=== PATIENT | female | born 1990 | race Caucasian/White ===

== ENCOUNTER 2017-01-26 18:23 | Emergency (ER) ==
--- NOTE | 2017-01-26 18:49 | PROVIDER DOCUMENTATION ---
HPI-Musculoskeletal Pain/Inj - GENERAL Chief Complaint: Extremity Pain Stated Complaint: RT KNEE PAIN Time Seen by Provider: 01/26/17 18:35 Source: patient - HX OF PRESENT ILLNESS-MUSKULOSKELTAL Nature of Presenting Problem: 26 y/o WF c/o R knee pain x 7 years. Pt states that she has seen several specialists since she had surgery on the knee 7 years ago. States that pain is mostly located at posterior aspect of knee. Denies any acute injury. Review of Systems - Adult - REVIEW OF SYSTEMS - ADULT Constitutional: reports: no symptoms reported. denies: chills, fever Eyes: reports: no symptoms reported. denies: blurred vision, double vision Ears, Nose, Mouth & Throat: reports: no symptoms reported. denies: ear pain, nose pain Cardiovascular: reports: no symptoms reported. denies: chest pain, palpitations Respiratory: reports: no symptoms reported. denies: dyspnea on exertion, shortness of breath Gastrointestinal: reports: no symptoms reported. denies: nausea, vomiting Genitourinary: reports: no symptoms reported. denies: dysuria, frequency Musculoskeletal: reports: see HPI, joint pain. denies: back pain, muscle aches , neck pain Integumentary: reports: no symptoms reported. denies: nail changes, rash Neurological: reports: no symptoms reported. denies: numbness, paresthesia Psychiatric: reports: no symptoms reported Endocrine: reports: no symptoms reported. denies: cold intolerance, heat intolerance Hematologic/Lymphatic: reports: no symptoms reported. denies: easy bruising, prolonged bleeding Allergic/Immunologic: reports: no symptoms reported All Other Systems: Reviewed and Negative Past History - Adult - PAST MEDICAL HISTORY-ADULT Review of Records: reports: Nursing Assessment Review, Medications Reviewed Major Childhood Illnesses: reports: denies history Cardiovascular: reports: denies history Respiratory: reports: asthma Gastrointestinal: reports: denies history Obstetrical/Gynecological: reports: ovarian cysts Genitourinary: reports: denies history Musculoskeletal: reports: denies history Neurological: reports: denies history Psychiatric: reports: denies history Endocrine/Immune: reports: denies history Other Conditions: reports: denies history 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 on dangers of tobacco.: Discussed manners to quit use, and f/u contacts for add'l counseling. Physical Exam-Injury Related - Physical Exam-Injury Related Initial Vital Signs Reviewed: Yes General Appearance: alert, mild distress Eyes: pink conjunctivae Head, Ears, Nose, Mouth & Throat: normocephalic/atraumatic Neck: normal inspection Respiratory: no respiratory distress Cardiovascular: normal peripheral pulses, regular rate, rhythm Peripheral Pulses: dorsalis-pedis (R): 1+, dorsalis-pedis (L): 1+ Extremity: normal range of motion, normal gait, normal capillary refill, tenderness (diffuse at R knee). negative: abnormal NV exam, swelling, other (- AP drawer, - medial/lateral laxity) Integumentary: normal color, warm/dry, blanching Neurologic: negative: aphasia Psych/Mental Status: normal mood/affect, normal thought content, normal thought process, oriented x 3 Progress - PLAN OF CARE/RESULTS Progress/Plan/Lab Results: Orders Category Date Time Status KNEE 3 VIEWS RIGHT [RAD] Stat Exams 01/26/17 18:36 Taken Vital Signs Temp Pulse Resp BP Pulse Ox 01/26/17 18:30 98.0 F 87 16 116/63 100 No Known Allergies Allergy (Verified 01/26/17 19:05) Acetaminophen/Diphenhydramine [Percogesic Extra Str Caplet] 1 each PO Q6H PRN PRN #14 tablet 01/26/17 Meloxicam [Mobic] 7.5 mg PO DAILY #30 tablet 01/26/17 Discussed results and f/u with pt. - XRAY 1 XRAY: Right XRAY Study: Knee XRAY Interpretation: No fx Departure - Departure Time of Disposition Order: 19:09 DIAGNOSIS: Knee pain, right Qualifiers: Chronicity: chronic Qualified Code(s): M25.561 - Pain in right knee; G89.29 - Other chronic pain Disposition: HOME 01 Certified Medical Emergency: Emergent Condition: Stable Additional Instructions: Take medications as directed. Follow up with specialist for further evaluation. RICE as needed. ED Follow Up Instructions: You have been treated by a care provider in the Emergency Department. These instructions are being provided to you so you can have an understanding of how to care for yourself upon discharge. Upon discharge from the Emergency Department, you are responsible for making arrangements for follow-up care by a physician of your choice. Take all prescribed medications as directed. Return to the Emergency Department immediately for any new or worsening symptoms. You may call the Physician Referral phone number at [phone] to obtain a list of Physicians who are taking new patients. Prescriptions: Meloxicam [Mobic] 7.5 mg PO DAILY #30 tablet Acetaminophen/Diphenhydramine [Percogesic Extra Str Caplet] 1 each PO Q6H PRN PRN #14 tablet PRN Reason: Pain Referrals: None,PCP [Primary Care Provider] - Olga Lidia Hua MD [STAFF PHYSICIAN] - Attestation - Physician/ TOMMY Attestation Patient care was provided by Advanced Practice Provider:: Yes Advanced Practice Provider:: Doris Johnson Advanced Practice Provider documentation review:: The Mid-level provider documentation, treatment plan and medical decision making was reviewed by the physician who agrees with all treatment and medical decision making by the MLP.
[2017-01-26 19:35] VITALS: BP 110/58
--- NOTE | 2017-01-27 09:15 | Diag Imaging Result Document ---
PROCEDURE NAME: KNEE 3 VIEWS RIGHT - 01/26/2017 PLAIN RADIOGRAPHS OF THE RIGHT KNEE, 3 VIEWS: COMPARISON: 12/26/2015. FINDINGS: There is no discrete fracture, dislocation, or intrinsic osseous lesion. The visualized joint spaces are essentially unremarkable. The surrounding soft tissues are grossly unremarkable. IMPRESSION: No evidence of acute osseous abnormality.
== END 2017-01-26 19:37 | disposition home or self-care (01) ==
LOC: ED 18:23
DX: M25.561 Pain in right knee (principal); G89.29 Other chronic pain; F17.210 Nicotine dependence, cigarettes, uncomplicated; Z71.6 Tobacco abuse counseling; Z87.42 Personal history of other diseases of the female genital tract